=== PATIENT | male | born 1955 | race Caucasian/White ===

== ENCOUNTER → 2017-01-25 | Day surgery (SDC) | payer BC, OTHER ==
[~2017-01-25] MED LIST: ACETAMINOPHEN/HYDROcodone 325 MG/5 MG TAB ONE; BUPIVACAINE/EPINEPHRINE 0.25% 50 ML VIAL ONE; CYCL-36 PO; KETOROLAC TROMETHAMINE 30 MG/ML (IVP) VIAL IV PUSH ONE; LACTATED RINGER'S 1000 ML INJ 1,000 ML ONE; LORT5TAB PO; MIDAZOLAM HCL 2 MG/2 ML VIAL ONE; NAPR550 PO; ONDANSETRON HCL 4 MG/2 ML VIAL IV PUSH ONE; PROPOFOL 200 MG/20 ML AMP IV ONE; RAMI5CAP7 PO; ceFAZolin 2 GM PREMIX 50 ML ONE
--- NOTE | 2017-01-25 15:13 | TN ---
cc: ALPHONSE SOLORZANO M.D. DATE OF SURGERY: 01/25/2017 PREOPERATIVE DIAGNOSIS Bilateral inguinal hernia. POSTOPERATIVE DIAGNOSIS Bilateral inguinal hernia. PROCEDURE Laparoscopic repair bilateral inguinal hernia with mesh, total extraperitoneal approach. SURGEON Dr. Alphonse Solorzano SLACK COOPER Corazon Brown, RESIDENT PROGRAM SPECIALIST ANESTHESIA General. INDICATIONS This is a very pleasant 61-year-old man referred to me by Dr. Rey Crane for evaluation and management of recently diagnosed left inguinal hernia. The patient has had a several-month history of intermittent burning discomfort in the left groin. He is very active, runs and lifts heavy things. He has noticed a bulge in the bilateral groin. Physical exam demonstrated bilateral reducible inguinal hernias. INTRAOPERATIVE FINDINGS Bilateral indirect inguinal hernias. ESTIMATED BLOOD LOSS Minimal. This procedure was assisted by my nurse practitioner. The skill set of an RESIDENT PROGRAM SPECIALIST was medically necessary to facilitate the efficient care of the patient in the operating room. During the surgical procedure the certified surgical technician was at the back table providing appropriate instrumentation while the nurse practitioner was directly assisting me through the entirety of the procedure. DESCRIPTION OF PROCEDURE IN DETAIL The patient was identified as Basim Catalan, taken to the operating room and placed in the supine position. Sequential compression devices were placed on bilateral lower extremities. Following induction of adequate general anesthesia the patient's lower abdomen was prepped and draped in usual sterile fashion with Betadine. A timeout procedure was performed. Following completion of the timeout procedure to everyone's satisfaction within the room, 0.25% Marcaine with epinephrine was placed at each incision site. An infraumbilical 2-3 cm midline incision was carried out with a scalpel. Dissection continued posteriorly to the level of the anterior rectus fascia on the right side. This was incised in its medial border using a scalpel and a preperitoneal plane was developed with the surgeon's finger posterior to the rectus muscle directed towards the pubic symphysis. A preperitoneal dissecting balloon was placed in the preperitoneal space and with the patient in slight Trendelenburg position under direct laparoscopic view, inflated to a total of approximately 35 pumps. This allowed for identification of the pubic symphysis and bilateral Carlos's ligaments and the inferior epigastric vessels. The balloon was desufflated and removed and a structural balloon trocar placed in the preperitoneal space, its balloon inflated with CO2 insufflation until a level of 11 mmHg ensued. Two infraumbilical midline 5 mm trocars were then placed in the preperitoneal space under direct laparoscopic view after incision of the skin with a scalpel. Attention was turned first to dissection of the right side. Carlos's ligament was cleared. Blunt dissection lateral and posterior to the spermatic cord structures was performed using blunt graspers. Across the anterior medial and posterolateral surface herniated preperitoneal fatty tissue was reduced from the inguinal canal into the preperitoneal space. Adherent peritoneum was reduced to the base of the spermatic cord anteromedially. A 4 x 6 inch piece of ProLite mesh was cut with an anterolateral slit placed around the spermatic cord and tacked into position with the ProTack device, placing two tacks to approximate the anterolateral slit and one tack on the Carlos's ligament inferomedially. A 2 x 6 inch piece of the mesh was placed across the anterolateral slit and held in position with a tack superolaterally, superomedially and inferomedially. Attention was then turned to the left side. Blunt dissection allowed for identification of Carlos's ligament. Blunt dissection lateral and posterior to the spermatic cord was then performed. A large amount of preperitoneal fatty tissue was then reduced from the inguinal canal across the anterior surface of the spermatic cord from medial to lateral. The anteromedial surface was examined and adherent peritoneum was reduced to the base of the spermatic cord using the blunt graspers. There was no evidence of femoral or direct hernia bilaterally. A 4 x 6 inch piece of the ProLite mesh was cut with an anterolateral slit placed around the spermatic cord and tacked into position on the left side as it had been done on the right. A 2 x 6 inch piece of the mesh was placed across the anterolateral slit and held in position with the ProTack device, placing tacks superolateral, superomedial and inferomedial. Photographs were taken of the completed repair. The remaining local anesthetic was placed in the preperitoneal space. Trocars were removed under direct visualization. There was no evidence of bleeding from the trocar sites. The preperitoneal space was actively desufflated through the infraumbilical port and during this time the inferolateral mesh was held against the anterior abdominal wall. The infraumbilical trocar was removed. The anterior rectus fascial incision was closed with running 2-0 Vicryl suture. Port site skin incisions were approximated with 4-0 Monocryl subcuticular sutures. Dressings were applied with Mastisol and half-inch brown Steri-Strips. The patient tolerated the procedure without apparent complication. Sponge, needle and instrument counts were correct at the end of the case. MD ANTONIO Subramanian/KATHIE /2:03 PM /3:01 PM
== END | disposition home or self-care (01) ==
LOC: ESDC 11:25
PROVIDERS: ATTEND Surgery Trauma Surgery
DX: K40.20 Bilateral inguinal hernia, without obstruction or gangrene, not specified as recurrent (principal)
CPT/HCPCS: 00840; 49650; C1727; C1781; J0690; J1885; J2250; J2405; J3010; J7120